=== PATIENT | male | born 1990 | race Caucasian/White ===

== ENCOUNTER 2024-11-22 12:34 | Emergency (ER) | payer OTHER ==
[~2024-11-22] VITALS: Ht 167.6 cm; Wt 79.8 kg
[2024-11-22 13:30] VITALS: BP 114/63; TEMP 97.3; O2SAT 99
== END 2024-11-22 13:38 | disposition home or self-care (01) ==
LOC: M ED 12:34 → EDBD 12:34 → M ED 13:38
DX: R11.0 Nausea (principal); T40.715A Adverse effect of cannabis, initial encounter; F17.200 Nicotine dependence, unspecified, uncomplicated